=== PATIENT | male | born 1950 | race Caucasian/White ===

== ENCOUNTER 2018-07-20 23:41 | Emergency (ER) | payer MEDICARE, MEDICAID, OTHER ==
[~2018-07-20] VITALS: Ht 180.3 cm; Wt 74.8 kg
[2018-07-20 23:48] VITALS: BP 117/85
== END 2018-07-21 00:52 | disposition home or self-care (01) ==
LOC: ER 23:41
DX: M70.22 Olecranon bursitis, left elbow (principal); F12.90 Cannabis use, unspecified, uncomplicated; I10 Essential (primary) hypertension; Z56.0 Unemployment, unspecified; Z88.8 Allergy status to other drugs, medicaments and biological substances; Y93.9 Activity, unspecified
CPT/HCPCS: 20605; 73080; 99284

== ENCOUNTER 2018-08-03 17:20 | Inpatient (IN) | payer MEDICARE, MEDICAID, OTHER ==
[~2018-08-03] VITALS: Ht 185.4 cm; Wt 96.0 kg
[2018-08-03 18:06] LABS: BASOPHILS # (AUTO) 0.1 X10'3 (0-0.2); BASOPHILS % (AUTO) 1.1 % (0-1); EOSINOPHILS # (AUTO) 0.1 X10'3 (0-0.9); EOSINOPHILS % (AUTO) 1.7 % (0-6); HEMOGLOBIN 12.8 g/dl (14.0-17.9); LYMPHOCYTES # (AUTO) 1.6 X10'3 (1.1-4.8); LYMPHOCYTES % (AUTO) 30.8 % (21-51); MEAN CORPUSCULAR HEMOGLOBIN 31.5 PG (27.0-31.0); MEAN CORPUSCULAR HGB CONC 34.5 % (33.0-36.5); MEAN CORPUSCULAR VOLUME 91.3 FL (78-98); MEAN PLATELET VOLUME 7.5 FL (7.4-10.4); MONOCYTES # (AUTO) 0.5 X10'3 (0-0.9); MONOCYTES % (AUTO) 10.7 % (2-12); NEUTROPHILS # (AUTO) 2.8 X10'3 (1.8-7.7); NEUTROPHILS % (AUTO) 55.7 % (42-75); PLATELET COUNT 233 X10'3 (140-440); RED BLOOD COUNT 4.05 X10'6 (4.70-6.10); RED CELL DISTRIBUTION WIDTH 14.4 % (11.5-14.5); WHITE BLOOD COUNT 5.1 X10'3 (4.5-11.0)
[2018-08-03 18:16] LABS: PARTIAL THROMBOPLASTIN TIME 27 SECONDS (22-32); PROTHROMBIN TIME 10.5 SECONDS (9.0-12.0)
[2018-08-03 18:20] LABS: ALANINE AMINOTRANSFERASE 62 U/L (12-78); ALBUMIN 3.7 G/DL (3.4-5.0); ALBUMIN/GLOBULIN RATIO 0.9 (1.1-1.5); ALKALINE PHOSPHATASE 122 IU/L (46-116); ANION GAP 18 (8-16); ASPARTATE AMINO TRANSFERASE 61 U/L (10-37); BILIRUBIN,TOTAL 0.2 MG/DL (0.1-1.0); BLOOD UREA NITROGEN 29 MG/DL (7-18); BUN/CREATININE RATIO 9.4 (5.4-32.0); CHLORIDE 105 MMOL/L (99-107); GLUCOSE 120 MG/DL (70-104); SODIUM 141 MMOL/L (135-145); TOTAL CARBON DIOXIDE 17.9 MMOL/L (24-32); TOTAL PROTEIN 7.7 G/DL (6.4-8.2); eGFR 20 ML/MIN
[2018-08-03] MEDS ORDERED: morphine 4 MG/ML inj SYRINge IV STA (18:29)
[2018-08-03] MEDS ORDERED: normal saline 1000ML IV soln IVB ONE ×2 (19:25→20:25)
[2018-08-03] MEDS ORDERED: ondansetron/PF 4mg/2ml inj IV ONE (19:30)
[2018-08-03] MEDS ORDERED: morphine 4 MG/ML inj SYRINge IV PRN (19:30)
[2018-08-03] MEDS ORDERED: folic acid inj. 2 MG, thiamine inj. 100 MG, MVI, adult No.4 with vit. K 10 ML in dextro... IV SCH ×4 (20:00)
[2018-08-03] MEDS ORDERED: AMLO5TAB10 PO (20:04)
[2018-08-03] MEDS ORDERED: DULO60CA45 PO (20:04)
[2018-08-03] MEDS ORDERED: METO-395 PO (20:04)
[2018-08-03] MEDS ORDERED: OMEP20CA10 PO (20:04)
[2018-08-03] MEDS ORDERED: MOME13HF INH (20:04)
[2018-08-03] MEDS ORDERED: TOPI50TA24 PO (20:04)
[2018-08-03] MEDS ORDERED: FLO0.4C PO (20:04)
[2018-08-03] MEDS ORDERED: morphine 4 MG/ML inj SYRINge IV ONE (20:30)
[2018-08-03 20:44] LABS: COLOR,URINE YELLOW (Yellow); GLUCOSE, URINE NEGATIVE (Neg); KETONES,URINE NEGATIVE (Neg); LEUKOCYTE ESTERASE ,URINE NEGATIVE (Neg); NITRITES, URINE NEGATIVE (Neg); OCCULT BLOOD,URINE NEGATIVE (Neg); PH,URINE 5.5 (4.8-8.0); PROTEIN,URINE 100 mg/dl (Neg); UROBILINOGEN,URINE 0.2 E.U/dL (0.2-1.0)
[2018-08-03 20:58] LABS: CLARITY,URINE SLIGHTLY CLOUDY (Clear); UA COLLECTION TYPE CLN CATCH MIDSTREAM
[2018-08-03 21:01] LABS: AMORPHOUS URATES 2+
[2018-08-03 21:02] LABS: BACTERIA,URINE NONE SEEN /HPF (Neg); CAL OXALATE CRYSTALS 1+ /HPF (NEGATIVE); MUCUS STRANDS FEW /LPF (Neg); RBC,URINE NONE SEEN /HPF (0-2); SQUAMOUS EPITHELIAL CELL,UR FEW /LPF (FEW); WBC,URINE 0-4 /HPF (0-4)
[2018-08-03 21:03] LABS: COARSE GRANULAR CAST 0-3 /LPF (NEGATIVE); TRANSITIONAL EPI CELLS,URINE FEW /HPF
[2018-08-03 21:06] LABS: ETHANOL 0.212 GM/DL (0.0-0.010)
[2018-08-03 21:21] LABS: URINE AMPHETAMINE SCREEN NEGATIVE (Neg); URINE BARBITUATE SCREEN NEGATIVE (Neg); URINE BENZODIAZEPINES SCREEN NEGATIVE (Neg); URINE CANNABINOID SCREEN NEGATIVE (Neg); URINE COCAINE SCREEN NEGATIVE (Neg); URINE METHADONE SCREEN NEGATIVE (Neg); URINE OPIATE SCREEN POSITIVE (Neg); URINE PHENCYCLIDINE SCREEN NEGATIVE (Neg)
[2018-08-03] MEDS ORDERED: haloperidol 5mg tablet PO PRN (21:55)
[2018-08-03] MEDS ORDERED: mag hydrox/Alum hydrox/simeth 30ml oral suspension PO PRN (21:55)
[2018-08-03] MEDS ORDERED: docusate sod 100mg capsule PO PRN (21:55)
[2018-08-03] MEDS ORDERED: ondansetron/PF 4mg/2ml inj IV PRN (21:55)
[2018-08-03] MEDS ORDERED: morphine 2 MG/ML inj. syringe IV PRN (21:55)
[2018-08-03] MEDS ORDERED: acetaminophen 325mg tablet PO PRN ×2 (21:55)
[2018-08-03] MEDS ORDERED: magnesium hydroxide 30ml (MOM) UD suspension PO PRN (21:55)
[2018-08-03] MEDS ORDERED: thiamine inj. 100 MG in normal saline 100ml IV soln 100 ML IV ONE (21:55)
[2018-08-03] MEDS ORDERED: haloperidol lactate 5mg/ml inj IM PRN (21:55)
[2018-08-03] MEDS: normal saline 1000ml 1,000 ML IV SCH (22:06)
[2018-08-03 23:00] VITALS: BP 104/62
[2018-08-03] MEDS ORDERED: HYDROmorphone inj. 0.5 MG/0.5 ML DISP.SYRIN IV ONE (23:50)
[2018-08-03] MEDS ORDERED: normal saline 1000ml 1,000 ML IV ONE (23:50)
[2018-08-03] MEDS ORDERED: HYDROmorphone 1 mg/ml syringe IV ONE (23:55)
[2018-08-04] VITALS (7 sets, daily range): BP systolic 108–166; BP diastolic 57–82
[2018-08-04] MEDS: topiramate 25mg tablet PO SCH ×3 (00:16→20:17)
[2018-08-04] MEDS: HYDROmorphone 1 mg/ml syringe IV PRN ×4 (05:35→20:18)
[2018-08-04] MEDS ORDERED: albuterol 2.5 MG/3 ML nebule ONE (06:42)
[2018-08-04 07:10] LABS: BASOPHILS % (AUTO) 0.4 % (0-1); EOSINOPHILS # (AUTO) 0.1 X10'3 (0-0.9); EOSINOPHILS % (AUTO) 2.2 % (0-6); HEMATOCRIT 33.2 % (42.0-52.0); HEMOGLOBIN 11.5 g/dl (14.0-17.9); LYMPHOCYTES # (AUTO) 1.9 X10'3 (1.1-4.8); LYMPHOCYTES % (AUTO) 32.9 % (21-51); MEAN CORPUSCULAR HEMOGLOBIN 32.1 PG (27.0-31.0); MEAN CORPUSCULAR HGB CONC 34.7 % (33.0-36.5); MEAN CORPUSCULAR VOLUME 92.4 FL (78-98); MEAN PLATELET VOLUME 7.5 FL (7.4-10.4); MONOCYTES # (AUTO) 0.7 X10'3 (0-0.9); MONOCYTES % (AUTO) 11.6 % (2-12); NEUTROPHILS # (AUTO) 3.1 X10'3 (1.8-7.7); NEUTROPHILS % (AUTO) 52.9 % (42-75); PLATELET COUNT 180 X10'3 (140-440); RED BLOOD COUNT 3.59 X10'6 (4.70-6.10); RED CELL DISTRIBUTION WIDTH 14.3 % (11.5-14.5); WHITE BLOOD COUNT 5.8 X10'3 (4.5-11.0)
[2018-08-04] MEDS: budesonide 0.5mg/2ml UD nebule IH SCH ×2 (07:16→20:04)
[2018-08-04] MEDS: albuterol 2.5 MG/3 ML nebule NEB SCH ×3 (07:16→20:05)
[2018-08-04 07:29] LABS: ALBUMIN 3.1 G/DL (3.4-5.0); ANION GAP 12 (8-16); BLOOD UREA NITROGEN 21 MG/DL (7-18); BUN/CREATININE RATIO 10.2 (5.4-32.0); CHLORIDE 111 MMOL/L (99-107); CREATININE 2.06 MG/DL (0.60-1.10); GLUCOSE 103 MG/DL (70-104); MAGNESIUM 1.7 MG/DL (1.5-2.4); PHOSPHORUS 3.2 MG/DL (2.3-4.5); POTASSIUM 3.6 MMOL/L (3.5-5.1); SODIUM 143 MMOL/L (135-145); TOTAL CARBON DIOXIDE 19.7 MMOL/L (24-32); eGFR 32 ML/MIN
[2018-08-04] MEDS: folic acid 1mg tablet PO SCH ×2 (07:45→20:17)
[2018-08-04] MEDS: multivitamins, therapeutics tablet PO SCH (07:45)
[2018-08-04] MEDS: duloxetine 30mg CAPSULE.DR PO SCH (07:45)
[2018-08-04] MEDS: pantoprazole 40mg Tablet.DR PO SCH (07:45)
[2018-08-04] MEDS: tamsulosin 0.4mg capsule PO SCH (07:46)
[2018-08-04] MEDS: LORazepam 1 MG tablet PO PRN (07:46)
[2018-08-04] MEDS: thiamine 100mg tablet PO SCH (07:46)
[2018-08-04] MEDS: normal saline 1000ml 1,000 ML IV SCH ×2 (07:51→12:08)
[2018-08-04] MEDS ORDERED: FORMOTEROL INH SCH (08:00)
[2018-08-04] MEDS ORDERED: MOMETASONE INH SCH (08:00)
[2018-08-04] MEDS: HYDROcodone/acetaminophen 5mg/325mg tablet PO PRN (10:00)
[2018-08-04] MEDS: LIDOcaine 5% patch TP SCH (10:00)
[2018-08-04] MEDS: heparin, porcine 5000 units/ml vial SQ SCH (20:16)
[2018-08-04] MEDS: Potassium Cl inj 20 MEQ in normal saline 1000ml 1,000 ML IV SCH (22:23)
[2018-08-05] VITALS (7 sets, daily range): BP systolic 145–190; BP diastolic 72–99
[2018-08-05] MEDS: Melatonin 3mg tablet PO PRN ×2 (00:22→21:56)
[2018-08-05] MEDS: HYDROmorphone 1 mg/ml syringe IV PRN ×6 (00:22→23:24)
[2018-08-05 06:17] LABS: ALBUMIN 3.3 G/DL (3.4-5.0); ANION GAP 15 (8-16); BLOOD UREA NITROGEN 15 MG/DL (7-18); CALCIUM 8.7 MG/DL (8.5-10.1); CHLORIDE 108 MMOL/L (99-107); CREATININE 1.36 MG/DL (0.60-1.10); GLUCOSE 129 MG/DL (70-104); MAGNESIUM 1.6 MG/DL (1.5-2.4); PHOSPHORUS 2.1 MG/DL (2.3-4.5); POTASSIUM 3.6 MMOL/L (3.5-5.1); SODIUM 141 MMOL/L (135-145); eGFR 52 ML/MIN
[2018-08-05] MEDS: pantoprazole 40mg Tablet.DR PO SCH (07:15)
[2018-08-05] MEDS: topiramate 25mg tablet PO SCH ×2 (07:15→19:12)
[2018-08-05] MEDS: thiamine 100mg tablet PO SCH (07:15)
[2018-08-05] MEDS: folic acid 1mg tablet PO SCH ×2 (07:15→19:12)
[2018-08-05] MEDS: LIDOcaine 5% patch TP SCH (07:15)
[2018-08-05] MEDS: heparin, porcine 5000 units/ml vial SQ SCH ×2 (07:15→19:12)
[2018-08-05] MEDS: metoprolol succinate 25mg (24-HOUR) SR. Tablet PO SCH (07:16)
[2018-08-05] MEDS: tamsulosin 0.4mg capsule PO SCH (07:16)
[2018-08-05] MEDS: duloxetine 30mg CAPSULE.DR PO SCH (07:16)
[2018-08-05] MEDS: multivitamins, therapeutics tablet PO SCH (07:16)
[2018-08-05] MEDS: Potassium Cl inj 20 MEQ in normal saline 1000ml 1,000 ML IV SCH ×2 (09:16→21:56)
[2018-08-05] MEDS: budesonide 0.5mg/2ml UD nebule IH SCH ×2 (09:27→19:42)
[2018-08-05] MEDS: albuterol 2.5 MG/3 ML nebule NEB SCH ×4 (09:27→19:42)
[2018-08-05] MEDS: LORazepam 1 MG tablet PO PRN (22:02)
[2018-08-06] VITALS (8 sets, daily range): BP systolic 150–187; BP diastolic 79–111
[2018-08-06] MEDS: LORazepam 2 mg/ml vial IV PRN ×2 (02:41→03:54)
[2018-08-06 03:08] LABS: ALBUMIN 3.3 G/DL (3.4-5.0); ANION GAP 14 (8-16); BLOOD UREA NITROGEN 12 MG/DL (7-18); BUN/CREATININE RATIO 8.5 (5.4-32.0); CALCIUM 8.8 MG/DL (8.5-10.1); CHLORIDE 107 MMOL/L (99-107); CREATININE 1.41 MG/DL (0.60-1.10); GLUCOSE 99 MG/DL (70-104); MAGNESIUM 1.7 MG/DL (1.5-2.4); PHOSPHORUS 1.8 MG/DL (2.3-4.5); POTASSIUM 3.9 MMOL/L (3.5-5.1); SODIUM 141 MMOL/L (135-145); TOTAL CARBON DIOXIDE 19.7 MMOL/L (24-32); eGFR 50 ML/MIN
[2018-08-06] MEDS ORDERED: haloperidol lactate 5mg/ml inj IM ONE ×3 (03:40→04:15)
[2018-08-06] MEDS ORDERED: diphenhydrAMINE 50 mg/ml inj IM ONE ×2 (04:05→04:15)
[2018-08-06] MEDS: Potassium Cl inj 20 MEQ in normal saline 1000ml 1,000 ML IV SCH ×3 (04:09→23:30)
[2018-08-06] MEDS ORDERED: LORazepam 2 mg/ml vial IM ONE (04:15)
[2018-08-06] MEDS: budesonide 0.5mg/2ml UD nebule IH SCH ×2 (07:27→19:13)
[2018-08-06] MEDS: albuterol 2.5 MG/3 ML nebule NEB SCH ×5 (07:27→19:13)
[2018-08-06] MEDS: LIDOcaine 5% patch TP SCH ×2 (07:49→20:00)
[2018-08-06] MEDS: heparin, porcine 5000 units/ml vial SQ SCH ×2 (07:49→19:21)
[2018-08-06] MEDS: topiramate 25mg tablet PO SCH ×2 (08:00→19:21)
[2018-08-06] MEDS: pantoprazole 40mg Tablet.DR PO SCH (08:00)
[2018-08-06] MEDS: tamsulosin 0.4mg capsule PO SCH (08:00)
[2018-08-06] MEDS: metoprolol succinate 25mg (24-HOUR) SR. Tablet PO SCH (08:00)
[2018-08-06] MEDS: folic acid 1mg tablet PO SCH ×2 (08:00→19:21)
[2018-08-06] MEDS: duloxetine 30mg CAPSULE.DR PO SCH (08:00)
[2018-08-06] MEDS: thiamine 100mg tablet PO SCH (08:00)
[2018-08-06] MEDS: multivitamins, therapeutics tablet PO SCH (08:00)
[2018-08-06] MEDS: HYDROmorphone 1 mg/ml syringe IV PRN ×2 (19:23→23:30)
[2018-08-07 03:00] VITALS: BP 184/100
[2018-08-07] MEDS: hydrALAZINE 20mg/ml inj. IV PRN (03:14)
[2018-08-07 06:00] VITALS: BP 174/84
[2018-08-07] MEDS: HYDROmorphone 1 mg/ml syringe IV PRN ×2 (06:14→10:42)
[2018-08-07] MEDS: albuterol 2.5 MG/3 ML nebule NEB SCH ×4 (07:57→20:04)
[2018-08-07] MEDS: budesonide 0.5mg/2ml UD nebule IH SCH ×2 (07:57→20:04)
[2018-08-07 08:31] LABS: ALBUMIN 3.1 G/DL (3.4-5.0); ANION GAP 13 (8-16); BLOOD UREA NITROGEN 14 MG/DL (7-18); BUN/CREATININE RATIO 10.9 (5.4-32.0); CALCIUM 9.3 MG/DL (8.5-10.1); CHLORIDE 111 MMOL/L (99-107); CREATININE 1.29 MG/DL (0.60-1.10); GLUCOSE 96 MG/DL (70-104); MAGNESIUM 1.8 MG/DL (1.5-2.4); PHOSPHORUS 2.3 MG/DL (2.3-4.5); SODIUM 144 MMOL/L (135-145); TOTAL CARBON DIOXIDE 20.2 MMOL/L (24-32); eGFR 56 ML/MIN
[2018-08-07] MEDS: tamsulosin 0.4mg capsule PO SCH (09:19)
[2018-08-07] MEDS: duloxetine 30mg CAPSULE.DR PO SCH (09:19)
[2018-08-07] MEDS: pantoprazole 40mg Tablet.DR PO SCH (09:20)
[2018-08-07] MEDS: multivitamins, therapeutics tablet PO SCH (09:20)
[2018-08-07] MEDS: folic acid 1mg tablet PO SCH ×2 (09:20→20:24)
[2018-08-07] MEDS: thiamine 100mg tablet PO SCH (09:21)
[2018-08-07] MEDS: topiramate 25mg tablet PO SCH ×2 (09:25→20:24)
[2018-08-07] MEDS: metoprolol succinate 25mg (24-HOUR) SR. Tablet PO SCH (09:28)
[2018-08-07] MEDS: heparin, porcine 5000 units/ml vial SQ SCH ×2 (09:29→20:24)
[2018-08-07] MEDS: LIDOcaine 5% patch TP SCH (09:30)
[2018-08-07 11:00] VITALS: BP 157/105
[2018-08-07] MEDS: HYDROcodone/acetaminophen 5mg/325mg tablet PO PRN ×3 (13:07→21:39)
[2018-08-07] MEDS: Potassium Cl inj 20 MEQ in normal saline 1000ml 1,000 ML IV SCH ×2 (13:08→20:33)
[2018-08-07 15:00] VITALS: BP 165/82
[2018-08-07 19:00] VITALS: BP 147/85
[2018-08-07 23:00] VITALS: BP 164/89
[2018-08-08] VITALS (7 sets, daily range): BP systolic 142–227; BP diastolic 72–127
[2018-08-08] MEDS: HYDROcodone/acetaminophen 5mg/325mg tablet PO PRN ×5 (02:09→20:02)
[2018-08-08 06:05] LABS: ALBUMIN 3.2 G/DL (3.4-5.0); ANION GAP 13 (8-16); BLOOD UREA NITROGEN 18 MG/DL (7-18); BUN/CREATININE RATIO 12.1 (5.4-32.0); CALCIUM 9.3 MG/DL (8.5-10.1); CHLORIDE 109 MMOL/L (99-107); CREATININE 1.49 MG/DL (0.60-1.10); GLUCOSE 98 MG/DL (70-104); MAGNESIUM 1.9 MG/DL (1.5-2.4); PHOSPHORUS 4.3 MG/DL (2.3-4.5); POTASSIUM 4.2 MMOL/L (3.5-5.1); SODIUM 144 MMOL/L (135-145); TOTAL CARBON DIOXIDE 22.3 MMOL/L (24-32); eGFR 47 ML/MIN
[2018-08-08] MEDS: hydrALAZINE 20mg/ml inj. IV PRN ×2 (06:22→22:35)
[2018-08-08] MEDS: budesonide 0.5mg/2ml UD nebule IH SCH ×2 (06:50→19:51)
[2018-08-08] MEDS: albuterol 2.5 MG/3 ML nebule NEB SCH ×4 (06:50→19:51)
[2018-08-08] MEDS: duloxetine 30mg CAPSULE.DR PO SCH (07:44)
[2018-08-08] MEDS: metoprolol succinate 25mg (24-HOUR) SR. Tablet PO SCH (07:44)
[2018-08-08] MEDS: folic acid 1mg tablet PO SCH ×2 (07:44→20:04)
[2018-08-08] MEDS: multivitamins, therapeutics tablet PO SCH (07:44)
[2018-08-08] MEDS: tamsulosin 0.4mg capsule PO SCH (07:44)
[2018-08-08] MEDS: thiamine 100mg tablet PO SCH (07:44)
[2018-08-08] MEDS: heparin, porcine 5000 units/ml vial SQ SCH ×2 (07:45→20:05)
[2018-08-08] MEDS: topiramate 25mg tablet PO SCH ×2 (07:45→20:03)
[2018-08-08] MEDS: Potassium Cl inj 20 MEQ in normal saline 1000ml 1,000 ML IV SCH (07:45)
[2018-08-08] MEDS: pantoprazole 40mg Tablet.DR PO SCH (07:45)
[2018-08-08] MEDS ORDERED: LIDOcaine 5% patch TP ONE (11:25)
[2018-08-08] MEDS: HYDROmorphone 1 mg/ml syringe IV PRN (22:48)
[2018-08-09] MEDS: HYDROcodone/acetaminophen 5mg/325mg tablet PO PRN ×2 (02:04→11:32)
[2018-08-09 03:00] VITALS: BP 177/91
[2018-08-09] MEDS: HYDROmorphone 1 mg/ml syringe IV PRN ×3 (03:19→12:37)
[2018-08-09 06:00] VITALS: BP 169/94
[2018-08-09] MEDS: budesonide 0.5mg/2ml UD nebule IH SCH (07:07)
[2018-08-09] MEDS: albuterol 2.5 MG/3 ML nebule NEB SCH ×2 (07:07→11:18)
[2018-08-09] MEDS: LIDOcaine 5% patch TP SCH (08:00)
[2018-08-09] MEDS: topiramate 25mg tablet PO SCH (08:00)
[2018-08-09] MEDS: pantoprazole 40mg Tablet.DR PO SCH (08:58)
[2018-08-09] MEDS: thiamine 100mg tablet PO SCH (08:59)
[2018-08-09] MEDS: multivitamins, therapeutics tablet PO SCH (08:59)
[2018-08-09] MEDS: tamsulosin 0.4mg capsule PO SCH (08:59)
[2018-08-09] MEDS: duloxetine 30mg CAPSULE.DR PO SCH (09:00)
[2018-08-09] MEDS: folic acid 1mg tablet PO SCH (09:01)
[2018-08-09] MEDS: metoprolol succinate 25mg (24-HOUR) SR. Tablet PO SCH (09:02)
[2018-08-09] MEDS: heparin, porcine 5000 units/ml vial SQ SCH (09:05)
[2018-08-09 10:14] LABS: ALBUMIN 3.5 G/DL (3.4-5.0); ANION GAP 13 (8-16); BLOOD UREA NITROGEN 20 MG/DL (7-18); BUN/CREATININE RATIO 12.5 (5.4-32.0); CHLORIDE 104 MMOL/L (99-107); GLUCOSE 126 MG/DL (70-104); MAGNESIUM 1.7 MG/DL (1.5-2.4); SODIUM 139 MMOL/L (135-145); TOTAL CARBON DIOXIDE 22.2 MMOL/L (24-32); eGFR 43 ML/MIN
[2018-08-09 10:18] LABS: BASOPHILS % (AUTO) 0.6 % (0-1); EOSINOPHILS % (AUTO) 2.1 % (0-6); HEMATOCRIT 34.8 % (42.0-52.0); HEMOGLOBIN 11.9 g/dl (14.0-17.9); LYMPHOCYTES % (AUTO) 14.9 % (21-51); MEAN CORPUSCULAR HEMOGLOBIN 32.1 PG (27.0-31.0); MEAN CORPUSCULAR HGB CONC 34.3 % (33.0-36.5); MEAN CORPUSCULAR VOLUME 93.5 FL (78-98); MEAN PLATELET VOLUME 7.9 FL (7.4-10.4); MONOCYTES % (AUTO) 11.4 % (2-12); NEUTROPHILS # (AUTO) 3.9 X10'3 (1.8-7.7); NEUTROPHILS % (AUTO) 71 % (42-75); PLATELET COUNT 196 X10'3 (140-440); RED BLOOD COUNT 3.72 X10'6 (4.70-6.10); RED CELL DISTRIBUTION WIDTH 14.7 % (11.5-14.5); WHITE BLOOD COUNT 5.4 X10'3 (4.5-11.0)
[2018-08-09 10:19] LABS: EOSINOPHILS # (AUTO) 0.1 X10'3 (0-0.9); LYMPHOCYTES # (AUTO) 0.8 X10'3 (1.1-4.8); MONOCYTES # (AUTO) 0.6 X10'3 (0-0.9)
[2018-08-09 11:00] VITALS: BP 170/95
[2018-08-09] MEDS ORDERED: MELA3TAB PO (13:35)
[2018-08-09] MEDS ORDERED: FOLI1TAB16 PO (13:35)
[2018-08-09] MEDS ORDERED: THI100T PO (13:35)
[2018-08-09] MEDS ORDERED: MULT-1179 PO (13:35)
[2018-08-09] MEDS ORDERED: amLODIPine 5mg tablet PO ONE (13:45)
[2018-08-09 13:58] VITALS: BP 135/77
[2018-08-09] MEDS ORDERED: ASPI-611 PO (14:05)
[2018-08-09] MEDS ORDERED: ATOR20TA66 PO (14:05)
== END 2018-08-09 15:23 | disposition home health service (06) | DRG 683 ==
LOC: ER 17:20 → ED HOLD 21:51 → PCU 3S 23:51 → CMPBEDREQ 08-06 19:23 → PCU 3S 08-08 10:10
PROVIDERS: ADMIT Internal Medicine; ATTEND Family Medicine
DX: N17.0 Acute kidney failure with tubular necrosis (principal); G45.8 Other transient cerebral ischemic attacks and related syndromes; M48.54XA Collapsed vertebra, not elsewhere classified, thoracic region, initial encounter for fracture; N18.3 Chronic kidney disease, stage 3 (moderate); E86.0 Dehydration; D64.9 Anemia, unspecified; F02.80 Dementia in other diseases classified elsewhere, unspecified severity, without behavioral disturbance, psychotic disturbance, mood disturbance, and anxiety; F10.10 Alcohol abuse, uncomplicated; G20 Parkinson's disease; G30.0 Alzheimer's disease with early onset; G40.909 Epilepsy, unspecified, not intractable, without status epilepticus; G89.29 Other chronic pain; M54.9 Dorsalgia, unspecified; F12.90 Cannabis use, unspecified, uncomplicated; M46.90 Unspecified inflammatory spondylopathy, site unspecified; Y90.1 Blood alcohol level of 20-39 mg/100 ml; F32.9 Major depressive disorder, single episode, unspecified; I95.9 Hypotension, unspecified; I12.9 Hypertensive chronic kidney disease with stage 1 through stage 4 chronic kidney disease, or unspecified chronic kidney disease; K21.9 Gastro-esophageal reflux disease without esophagitis; M85.80 Other specified disorders of bone density and structure, unspecified site; M50.322 Other cervical disc degeneration at C5-C6 level; N40.0 Benign prostatic hyperplasia without lower urinary tract symptoms; Z79.82 Long term (current) use of aspirin; Z79.899 Other long term (current) drug therapy; Z23 Encounter for immunization; Z88.8 Allergy status to other drugs, medicaments and biological substances; Z87.891 Personal history of nicotine dependence; Z71.41 Alcohol abuse counseling and surveillance of alcoholic
CPT/HCPCS: 36415; 70450; 70551; 71045; 72125; 72128; 80048; 80053; 80305; 80320; 81001; 83735; 84100; 84484; 85025; 85610; 85730; 87070; 93005; 93306; 93880; 94640; 94760; 96361; 96374; 96375; 96376; 97110; 97116; 97162; 97530; 99285; A4353; A6258; J0360; J1170; J1200; J1630; J1644; J2060; J2270; J2405; J3411; J3480; J3490; J7030; J7060; J7626

== ENCOUNTER 2019-08-26 17:30 | Emergency (ER) | payer MEDICARE, MEDICAID, OTHER ==
[~2019-08-26] VITALS: Ht 177.8 cm; Wt 95.5 kg
[~2019-08-26 17:30] MED LIST: AMLO5TAB10 PO; ATOR20TA66 PO; DULO60CA45 PO; FLO0.4C PO; FOLI1TAB16 PO; MELA3TAB64 PO; METO-395 PO; MOME13HF INH; MULT-1179 PO; THI100T PO; TOPI50TA24 PO
[2019-08-26] MEDS ORDERED: HYDROcodone/acetaminophen 10/325mg tab PO ONE (18:05)
[2019-08-26] MEDS ORDERED: LORazepam 1 MG tablet PO ONE (18:55)
--- NOTE | 2019-08-26 18:55 | NUR ---
DISCUSSED PT'S RESPONSE TO PAIN MEDICATION; NEW ORDER FOR ATIVAN 1MG RECEIVED.
[2019-08-26] MEDS ORDERED: HYDR-4383 PO (19:13)
[2019-08-26 19:23] VITALS: BP 121/61
== END 2019-08-26 19:27 | disposition home or self-care (01) ==
LOC: ER 17:30
DX: S52.512A Displaced fracture of left radial styloid process, initial encounter for closed fracture (principal); G20 Parkinson's disease; I10 Essential (primary) hypertension; F12.90 Cannabis use, unspecified, uncomplicated; Z86.69 Personal history of other diseases of the nervous system and sense organs; Z56.0 Unemployment, unspecified; Z88.8 Allergy status to other drugs, medicaments and biological substances; Z79.899 Other long term (current) drug therapy; W01.0XXA Fall on same level from slipping, tripping and stumbling without subsequent striking against object, initial encounter; Y93.89 Activity, other specified; Y92.89 Other specified places as the place of occurrence of the external cause; Y99.8 Other external cause status
CPT/HCPCS: 29125; 73090; 73110; 99284

== ENCOUNTER 2019-08-30 20:40 | Emergency (ER) | payer MEDICARE, MEDICAID, OTHER ==
[~2019-08-30] VITALS: Ht 177.8 cm; Wt 95.5 kg
[~2019-08-30 20:40] MED LIST changes: +HYDR-4383 PO
[2019-08-30 21:06] VITALS: BP 118/79
[2019-08-30] MEDS ORDERED: HYDR-3965 PO (23:47)
[2019-08-30] MEDS ORDERED: HYDROcodone/acetaminophen 5mg/325mg tablet PO ONE (23:50)
== END 2019-08-31 00:10 | disposition home or self-care (01) ==
LOC: ER 20:41
DX: M77.9 Enthesopathy, unspecified (principal); M25.532 Pain in left wrist; I10 Essential (primary) hypertension; F12.90 Cannabis use, unspecified, uncomplicated; F17.210 Nicotine dependence, cigarettes, uncomplicated; Z56.0 Unemployment, unspecified; Z79.899 Other long term (current) drug therapy; Z88.8 Allergy status to other drugs, medicaments and biological substances
CPT/HCPCS: 29125; 99283

== ENCOUNTER 2020-05-04 11:11 | Inpatient (IN) | payer MEDICARE, MEDICAID ==
[2020-05-04] VITALS (8 sets, daily range): BP systolic 99–186; BP diastolic 55–118
[~2020-05-04] VITALS: Ht 177.8 cm; Wt 103.1 kg
[2020-05-04] MEDS: K, MAG and/or Phos replacement - Verify level? MC SCH (08:00)
[~2020-05-04 11:11] MED LIST changes: +MELA3TAB39 PO; -MELA3TAB64 PO; -MULT-1179 PO; +MULT-25 PO; +folic acid 1mg tablet PO SCH; +folic acid inj. 2 MG, thiamine inj. 100 MG, MVI, adult No.4 with vit. K 10 ML in dextro... IV SCH; +thiamine 100mg tablet PO SCH
[2020-05-04] MEDS ORDERED: topiramate 100mg tablet PO ONE (11:30)
[2020-05-04] MEDS ORDERED: normal saline 1000ML IV soln IV ONE (11:35)
[2020-05-04 11:50] LABS: BASOPHILS % (AUTO) 1.2 % (0-1); EOSINOPHILS # (AUTO) 0.2 X10'3 (0-0.9); EOSINOPHILS % (AUTO) 3.9 % (0-6); HEMATOCRIT 38.4 % (42.0-52.0); HEMOGLOBIN 12.8 g/dl (14.0-17.9); LYMPHOCYTES % (AUTO) 23.8 % (21-51); MEAN CORPUSCULAR HGB CONC 33.3 g/dL (33.0-36.5); MEAN CORPUSCULAR VOLUME 96.2 FL (78-98); MONOCYTES # (AUTO) 0.5 X10'3 (0-0.9); MONOCYTES % (AUTO) 12.2 % (2-12); NEUTROPHILS # (AUTO) 2.4 X10'3 (1.8-7.7); NEUTROPHILS % (AUTO) 58.9 % (42-75); PLATELET COUNT 218 X10'3 (140-440); RED BLOOD COUNT 3.99 X10'6 (4.70-6.10); RED CELL DISTRIBUTION WIDTH 13.5 % (11.5-14.5); WHITE BLOOD COUNT 4.1 X10'3 (4.5-11.0)
[2020-05-04] MEDS ORDERED: LORazepam 2 mg/ml vial IV ONE ×2 (12:00→13:25)
[2020-05-04] MEDS ORDERED: LORazepam 2 mg/ml vial ONE (12:02)
[2020-05-04 12:03] LABS: PARTIAL THROMBOPLASTIN TIME 25 SECONDS (22-32)
[2020-05-04] MEDS ORDERED: levetiracetam inj 1,000 MG in normal saline 100ml IV soln 90 ML IV STA (12:03)
[2020-05-04 12:04] LABS: ALANINE AMINOTRANSFERASE 33 U/L (12-78); ALBUMIN 3.7 G/DL (3.4-5.0); ALKALINE PHOSPHATASE 96 IU/L (46-116); ANION GAP 17 (8-16); ASPARTATE AMINO TRANSFERASE 18 U/L (10-37); BILIRUBIN,TOTAL 0.2 MG/DL (0.1-1.0); BLOOD UREA NITROGEN 39 MG/DL (7-18); BUN/CREATININE RATIO 16.5 (5.4-32.0); CALCIUM 8.8 MG/DL (8.5-10.1); CHLORIDE 111 MMOL/L (99-107); CREATININE 2.36 MG/DL (0.60-1.10); GLUCOSE 100 MG/DL (70-104); POTASSIUM 4.1 MMOL/L (3.5-5.1); SODIUM 147 MMOL/L (135-145); TOTAL CARBON DIOXIDE 19.1 MMOL/L (24-32); TOTAL PROTEIN 7.5 G/DL (6.4-8.2); eGFR 28 ML/MIN
[2020-05-04] MEDS ORDERED: ipratropium/albuterol 3ml nebule NEB ONE (12:05)
[2020-05-04] MEDS ORDERED: magnesium 2GM in 50ml NS 50 ML IV ONE (12:05)
[2020-05-04] MEDS ORDERED: levetiracetam-NS 1000mg/100ml 100 ML IV STA (12:08)
[2020-05-04 12:19] LABS: MAGNESIUM 2.3 MG/DL (1.5-2.4); TROPONIN I < 0.04 NG/ML (0.0-0.05)
[2020-05-04] MEDS ORDERED: phenobarbital inj 500 MG in normal saline 250ml IV soln 246.1538 ML IV ONE (13:40)
[2020-05-04 13:41] LABS: PHOSPHORUS 3.3 MG/DL (2.3-4.5)
[2020-05-04 14:02] LABS: CLARITY,URINE SLIGHTLY CLOUDY (Clear); COLOR,URINE STRAW (Yellow); GLUCOSE, URINE NEGATIVE (Neg); KETONES,URINE NEGATIVE (Neg); LEUKOCYTE ESTERASE ,URINE NEGATIVE (Neg); NITRITES, URINE NEGATIVE (Neg); OCCULT BLOOD,URINE NEGATIVE (Neg); PH,URINE 5.5 (4.8-8.0); PROTEIN,URINE 30 mg/dl (Neg); UROBILINOGEN,URINE 0.2 E.U/dL (0.2-1.0)
[2020-05-04 14:08] LABS: UA COLLECTION TYPE STRAIGHT CATH
[2020-05-04 14:09] LABS: URINE AMPHETAMINE SCREEN NEGATIVE (Neg); URINE BARBITUATE SCREEN NEGATIVE (Neg); URINE BENZODIAZEPINES SCREEN POSITIVE (Neg); URINE CANNABINOID SCREEN NEGATIVE (Neg); URINE COCAINE SCREEN NEGATIVE (Neg); URINE METHADONE SCREEN NEGATIVE (Neg); URINE OPIATE SCREEN NEGATIVE (Neg); URINE PHENCYCLIDINE SCREEN NEGATIVE (Neg)
[2020-05-04 14:10] LABS: ETHANOL 0.142 GM/DL (0.0-0.010)
[2020-05-04 14:16] LABS: COARSE GRANULAR CAST 0-3 /LPF (NEGATIVE); HYALINE CASTS 0-3 /LPF (NEGATIVE)
[2020-05-04 14:17] LABS: AMORPHOUS URATES 3+; BACTERIA,URINE NONE SEEN /HPF (Neg); MUCUS STRANDS NONE SEEN /LPF (Neg); RBC,URINE NONE SEEN /HPF (0-2); SQUAMOUS EPITHELIAL CELL,UR NONE SEEN /LPF (FEW); TRANSITIONAL EPI CELLS,URINE FEW /HPF; WBC,URINE 0-4 /HPF (0-4)
[2020-05-04] MEDS ORDERED: magnesium 2GM in 50ml NS 50 ML IV PRN (16:55)
[2020-05-04] MEDS ORDERED: magnesium Cl slow-release 64mg tablet PO PRN (16:55)
[2020-05-04] MEDS ORDERED: haloperidol 5mg tablet PO PRN (16:55)
[2020-05-04] MEDS ORDERED: sodium phosphate inj. 30 MMOL in dextrose 5%-water 250 ML IV PRN (16:55)
[2020-05-04] MEDS ORDERED: potassium Cl 20 mEq SR tablet PO PRN ×2 (16:55)
[2020-05-04] MEDS ORDERED: magnesium hydroxide 30ml (MOM) UD suspension PO PRN (16:55)
[2020-05-04] MEDS ORDERED: HYDROcodone/acetaminophen 5mg/325mg tablet PO PRN (16:55)
[2020-05-04] MEDS ORDERED: ondansetron/PF 4mg/2ml inj IV PRN (16:55)
[2020-05-04] MEDS ORDERED: dextrose 50%-water 50ml dispensing syringe IV PRN (16:55)
[2020-05-04] MEDS ORDERED: sodium phosphate inj. 15 MMOL in dextrose 5%-water 250 ML IV PRN (16:55)
[2020-05-04] MEDS ORDERED: magnesium 4gm in 100ml NS 100 ML IV PRN (16:55)
[2020-05-04] MEDS ORDERED: Neutra Phos packet PO PRN (16:55)
[2020-05-04] MEDS ORDERED: thiamine 100mg/ml 2ml inj. IV ONE (16:55)
[2020-05-04] MEDS ORDERED: acetaminophen 325mg tablet PO PRN ×2 (16:55)
[2020-05-04] MEDS ORDERED: Melatonin 3mg tablet PO PRN (17:05)
[2020-05-04] MEDS ORDERED: folic acid inj. 2 MG, thiamine inj. 100 MG, MVI, adult No.4 with vit. K 10 ML in dextro... IV ONE ×4 (17:15)
[2020-05-04] MEDS: normal saline 1000ml 1,000 ML IV SCH (17:45)
[2020-05-04] MEDS: morphine 4 MG/ML inj SYRINge IV PRN ×2 (17:46→23:39)
--- NOTE | 2020-05-04 17:58 | NUR ---
Pt arrived to unit at 1730 via gurney. Got self over to ICU bed. Pt alert and oriented but complaining of back pain. 4mg morphine administered as well as meds that were not given in ER. Pt hooked up to ICU monitor. All VSS. No noted seizure activity at this time. Phenobarb gtt finishing up. Will continue to monitor.
[2020-05-04] MEDS ORDERED: LOSA50TA64 PO (17:59)
[2020-05-04] MEDS ORDERED: METO25TA6 PO (18:01)
[2020-05-04] MEDS ORDERED: MULT-1172 PO (18:03)
[2020-05-04] MEDS ORDERED: CHOL50004 PO (18:05)
[2020-05-04] MEDS ORDERED: DOXE10CA2 PO (18:07)
--- NOTE | 2020-05-04 18:10 | NUR ---
Patient in room ICU 2043. I have received report from ALOK Escobar and had the opportunity to ask questions and assume patient care.
[2020-05-04] MEDS ORDERED: OMEP20TA5 PO (18:11)
--- NOTE | 2020-05-04 18:11 | NUR ---
Problems reprioritized. Patient report given, questions answered & plan of care reviewed with ALOK Escobar.
[2020-05-04] MEDS ORDERED: GLUC-95 PO (18:12)
[2020-05-04] MEDS: pantoprazole 40 MG vial IV SCH (18:44)
[2020-05-04] MEDS: LORazepam 1 MG tablet PO PRN (18:45)
[2020-05-04] MEDS: HYDROcodone/acetaminophen 10/325mg tab PO PRN (18:45)
--- NOTE | 2020-05-04 18:45 | NUR ---
Patient very restless. Complaining of lower back and right hip pain. Medicated earlier with morphine IV with little effect. Shift assessment completed. No redness, swelling, or bruising noted to areas of complaint. No seizure activity noted. Does have fine tremors to upper extremities. Oriented to person, time, and situation. Disoriented to place despite knowing he is here because he had a seizure. Reoriented that he was in the hospital in [place]. Later on while conversing patient asked why we were in the basement and also stated that he was having double vision when looking at objects at a distance. Patient medicated with prn [place] and po Ativan 2mg as ordered. Patient is also edentulous and speech appears slurred but patient states that is normal.
--- NOTE | 2020-05-04 19:36 | NUR ---
6: Loud incoherent garbled sound and moaning heard from patient's room. Entered room to find patient unresponsive to stimuli. Color to upper chest, neck, and face deep reddish/purple in color. Rigidity noted to upper extremities with arms bent toward core of body. Patient then proceeded to stop making the garbled sounds and proceeded to start having rhythmic jerking movements to all extremities with arms remaining bent but extending above head. November Elder DIRECTOR [employer] made aware of seizure like activity and presented to assess patient. Ativan 2mg IV ordered prn for seizures and administered. Patient's activity stopped within 30 sec of Ativan administration. Patient remained in a postictal state for a very short time and immediately asking about getting up to walk once alert. Patient unaware of having a seizure. Denies headache, visionary problems. Airway and safety maintained throughout seizure. Will continue to monitor.
[2020-05-04] MEDS ORDERED: folic acid 1mg tablet PO SCH (20:00)
[2020-05-04] MEDS: heparin, porcine 5000 units/ml vial SQ SCH (20:25)
[2020-05-04] MEDS: metoprolol succinate 25mg (24-HOUR) SR. Tablet PO SCH (20:25)
[2020-05-04] MEDS: docusate sod 100mg capsule PO SCH (20:25)
--- NOTE | 2020-05-04 22:00 | NUR ---
No further seizure activity noted but patient remains restless and disoriented at times. Will continue to monitor.
--- NOTE | 2020-05-04 23:45 | NUR ---
Patient agitated and loudly moaning. Complaining of severe back pain and attempting to turn over. Offered to assist but patient disoriented and refusing assistance. Medicated with PRN Morphine and once calmer patient repositioned to side and left to rest.
[2020-05-05] VITALS (26 sets, daily range): BP systolic 102–170; BP diastolic 59–103
--- NOTE | 2020-05-05 01:00 | NUR ---
Patient has been resting comfortably since Morphine administration. VSS. No seizure activity.
[2020-05-05] MEDS: HYDROcodone/acetaminophen 10/325mg tab PO PRN ×2 (01:40→10:50)
--- NOTE | 2020-05-05 02:30 | NUR ---
Patient yelling out in pain. Was medicated with prn [place] about an hour ago. Not due for IV Morphine for another 2. Attempted repositioning but no effect noted. Contacted Franchesca Friedman RN and received one time dose of Morphine 4mg IV now. Given as ordered.
[2020-05-05] MEDS ORDERED: morphine 4 MG/ML inj SYRINge IV ONE (02:40)
[2020-05-05] MEDS: LORazepam 2 mg/ml vial IV PRN ×5 (03:03→18:01)
[2020-05-05 05:17] LABS: BASOPHILS % (AUTO) 0.9 % (0-1); EOSINOPHILS # (AUTO) 0.2 X10'3 (0-0.9); EOSINOPHILS % (AUTO) 3.1 % (0-6); HEMATOCRIT 32.9 % (42.0-52.0); LYMPHOCYTES # (AUTO) 1.7 X10'3 (1.1-4.8); LYMPHOCYTES % (AUTO) 31.9 % (21-51); MEAN CORPUSCULAR HEMOGLOBIN 32.3 PG (27.0-31.0); MEAN CORPUSCULAR HGB CONC 33.5 g/dL (33.0-36.5); MEAN CORPUSCULAR VOLUME 96.4 FL (78-98); MEAN PLATELET VOLUME 8.3 FL (7.4-10.4); MONOCYTES # (AUTO) 0.5 X10'3 (0-0.9); MONOCYTES % (AUTO) 10.1 % (2-12); NEUTROPHILS # (AUTO) 2.8 X10'3 (1.8-7.7); PLATELET COUNT 175 X10'3 (140-440); RED BLOOD COUNT 3.41 X10'6 (4.70-6.10); RED CELL DISTRIBUTION WIDTH 13.7 % (11.5-14.5); WHITE BLOOD COUNT 5.2 X10'3 (4.5-11.0)
[2020-05-05 05:27] LABS: ALANINE AMINOTRANSFERASE 29 U/L (12-78); ALBUMIN 3.2 G/DL (3.4-5.0); ALKALINE PHOSPHATASE 81 IU/L (46-116); ANION GAP 10 (8-16); ASPARTATE AMINO TRANSFERASE 20 U/L (10-37); BILIRUBIN,TOTAL 0.4 MG/DL (0.1-1.0); BLOOD UREA NITROGEN 31 MG/DL (7-18); CHLORIDE 114 MMOL/L (99-107); CREATININE 1.94 MG/DL (0.60-1.10); GLUCOSE 87 MG/DL (70-104); MAGNESIUM 2.2 MG/DL (1.5-2.4); PHOSPHORUS 3.3 MG/DL (2.3-4.5); SODIUM 147 MMOL/L (135-145); TOTAL CARBON DIOXIDE 23.3 MMOL/L (24-32); TOTAL PROTEIN 6.5 G/DL (6.4-8.2); eGFR 34 ML/MIN
--- NOTE | 2020-05-05 06:34 | NUR ---
Patient in room ICU 2043. I have received report from Luz and had the opportunity to ask questions and assume patient care.
[2020-05-05] MEDS: K, MAG and/or Phos replacement - Verify level? MC SCH (06:37)
[2020-05-05] MEDS: heparin, porcine 5000 units/ml vial SQ SCH ×2 (07:12→21:26)
[2020-05-05] MEDS: docusate sod 100mg capsule PO SCH ×2 (07:12→20:00)
[2020-05-05] MEDS: pantoprazole 40 MG vial IV SCH (07:12)
[2020-05-05] MEDS: tamsulosin 0.4mg capsule PO SCH (07:12)
[2020-05-05] MEDS: metoprolol succinate 25mg (24-HOUR) SR. Tablet PO SCH ×2 (07:13→20:00)
[2020-05-05] MEDS: atorvastatin 20mg tablet PO SCH (07:13)
[2020-05-05] MEDS: normal saline 1000ml 1,000 ML IV SCH ×2 (07:13→21:07)
[2020-05-05] MEDS: folic acid inj. 2 MG, thiamine inj. 100 MG, MVI, adult No.4 with vit. K 10 ML in dextro... IV SCH ×4 (07:13)
[2020-05-05] MEDS: morphine 4 MG/ML inj SYRINge IV PRN ×2 (07:27→13:50)
[2020-05-05] MEDS ORDERED: multivitamins, therapeutics tablet PO SCH ×2 (08:00)
--- NOTE | 2020-05-05 09:34 | NUR ---
Witnessed seizure lasting 2 mins approximately. Pt never lost BP or respirations. Ativan IV given. Pt now sleeping.
[2020-05-05] MEDS ORDERED: ATOR20TA66 PO (11:03)
[2020-05-05] MEDS ORDERED: POLY1DRO2 OP (11:13)
[2020-05-05] MEDS ORDERED: PEG 400/HYPROMELLOSE/GLYCERIN 15ml bottle EACHEYE PRN (12:35)
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
--- NOTE | 2020-05-05 18:14 | NUR ---
Problems reprioritized. Patient report given, questions answered & plan of care reviewed with NISHI.
--- NOTE | 2020-05-05 18:30 | NUR ---
Patient again very aggressive. Kicking. Attempting to get OOB. Pavel parker called again. Medicated with IV Ativan again. Patient still aggressive after 10min despite ativan. IM Haldol given. 1899. Amena in to visit. Updated on patient's condition. Patient now calm and sedated.
[2020-05-05] MEDS: haloperidol lactate 5mg/ml inj IM PRN (18:36)
[2020-05-05] MEDS ORDERED: LORazepam 2 mg/ml vial IV ONE (18:50)
[2020-05-05] MEDS ORDERED: non-formulary drug (Glucosamine HCl/Chondr Su A Na (Cidaflex Tablet) 1 TAB) PO SCH (20:00)
[2020-05-05] MEDS ORDERED: topiramate 25mg tablet PO SCH (20:00)
[2020-05-05] MEDS: topiramate 100mg tablet PO SCH (20:00)
[2020-05-05] MEDS: doxepin 10mg capsule PO SCH (21:00)
--- NOTE | 2020-05-05 21:00 | NUR ---
Patient remains asleep. Calm. Unable to give po meds at this time.
[2020-05-06] VITALS (24 sets, daily range): BP systolic 116–187; BP diastolic 69–118
[2020-05-06] MEDS: doxepin 10mg capsule PO SCH ×2 (00:39→20:21)
[2020-05-06] MEDS: metoprolol succinate 25mg (24-HOUR) SR. Tablet PO SCH ×3 (00:39→20:21)
[2020-05-06] MEDS: topiramate 100mg tablet PO SCH ×3 (00:39→20:30)
[2020-05-06] MEDS: HYDROcodone/acetaminophen 10/325mg tab PO PRN ×2 (00:40→18:30)
[2020-05-06] MEDS: LORazepam 1 MG tablet PO PRN ×2 (00:40→20:21)
[2020-05-06] MEDS: LORazepam 2 mg/ml vial IV PRN ×3 (04:10→22:26)
[2020-05-06] MEDS ORDERED: LORazepam 2 mg/ml vial IV ONE (04:10)
[2020-05-06] MEDS: haloperidol lactate 5mg/ml inj IM PRN (04:19)
[2020-05-06 05:32] LABS: EOSINOPHILS # (AUTO) 0.2 X10'3 (0-0.9); EOSINOPHILS % (AUTO) 5.4 % (0-6); HEMOGLOBIN 11.3 g/dl (14.0-17.9); LYMPHOCYTES # (AUTO) 1.2 X10'3 (1.1-4.8); LYMPHOCYTES % (AUTO) 27.1 % (21-51); MEAN CORPUSCULAR HEMOGLOBIN 32.4 PG (27.0-31.0); MEAN CORPUSCULAR HGB CONC 33.2 g/dL (33.0-36.5); MEAN CORPUSCULAR VOLUME 97.4 FL (78-98); MEAN PLATELET VOLUME 8.2 FL (7.4-10.4); MONOCYTES # (AUTO) 0.5 X10'3 (0-0.9); MONOCYTES % (AUTO) 11.4 % (2-12); NEUTROPHILS # (AUTO) 2.4 X10'3 (1.8-7.7); NEUTROPHILS % (AUTO) 55.1 % (42-75); PLATELET COUNT 152 X10'3 (140-440); RED BLOOD COUNT 3.49 X10'6 (4.70-6.10); RED CELL DISTRIBUTION WIDTH 13.8 % (11.5-14.5); WHITE BLOOD COUNT 4.4 X10'3 (4.5-11.0)
[2020-05-06 05:48] LABS: ALANINE AMINOTRANSFERASE 28 U/L (12-78); ALBUMIN 3.1 G/DL (3.4-5.0); ALBUMIN/GLOBULIN RATIO 0.9 (1.1-1.5); ALKALINE PHOSPHATASE 90 IU/L (46-116); ANION GAP 10 (8-16); ASPARTATE AMINO TRANSFERASE 27 U/L (10-37); BILIRUBIN,TOTAL 0.4 MG/DL (0.1-1.0); BLOOD UREA NITROGEN 20 MG/DL (7-18); BUN/CREATININE RATIO 11.4 (5.4-32.0); CALCIUM 8.3 MG/DL (8.5-10.1); CHLORIDE 113 MMOL/L (99-107); CREATININE 1.76 MG/DL (0.60-1.10); GLUCOSE 97 MG/DL (70-104); PHOSPHORUS 2.9 MG/DL (2.3-4.5); SODIUM 145 MMOL/L (135-145); TOTAL CARBON DIOXIDE 21.9 MMOL/L (24-32); TOTAL PROTEIN 6.5 G/DL (6.4-8.2); eGFR 39 ML/MIN
[2020-05-06] MEDS: pantoprazole 40mg Tablet.DR PO SCH (07:30)
[2020-05-06] MEDS: vitamin D (cholecalciferol) 1,000 unit tablet PO SCH (08:00)
[2020-05-06] MEDS: duloxetine 30mg CAPSULE.DR PO SCH ×2 (08:00→15:04)
[2020-05-06] MEDS: losartan 50mg tablet PO SCH (08:00)
[2020-05-06] MEDS ORDERED: non-formulary drug (Omeprazole 1 TAB) PO SCH (08:00)
[2020-05-06] MEDS: folic acid inj. 2 MG, thiamine inj. 100 MG, MVI, adult No.4 with vit. K 10 ML in dextro... IV SCH ×4 (08:00)
[2020-05-06] MEDS: amLODIPine 5mg tablet PO SCH ×3 (08:00→15:04)
[2020-05-06] MEDS: tamsulosin 0.4mg capsule PO SCH (08:00)
[2020-05-06] MEDS: docusate sod 100mg capsule PO SCH ×2 (08:00→20:21)
[2020-05-06] MEDS: K, MAG and/or Phos replacement - Verify level? MC SCH (08:00)
[2020-05-06] MEDS: atorvastatin 20mg tablet PO SCH (08:00)
[2020-05-06] MEDS: normal saline 1000ml 1,000 ML IV SCH ×2 (08:52→22:12)
[2020-05-06] MEDS: heparin, porcine 5000 units/ml vial SQ SCH ×2 (11:47→20:21)
--- NOTE | 2020-05-06 18:13 | NUR ---
gave report to david DICKINSON
[2020-05-07] VITALS (14 sets, daily range): BP systolic 130–179; BP diastolic 73–95
[2020-05-07] MEDS: LORazepam 2 mg/ml vial IV PRN ×5 (01:39→13:32)
[2020-05-07] MEDS: morphine 4 MG/ML inj SYRINge IV PRN (01:55)
[2020-05-07 05:34] LABS: BASOPHILS % (AUTO) 0.8 % (0-1); EOSINOPHILS # (AUTO) 0.2 X10'3 (0-0.9); HEMATOCRIT 35.3 % (42.0-52.0); HEMOGLOBIN 11.9 g/dl (14.0-17.9); LYMPHOCYTES % (AUTO) 22.4 % (21-51); MEAN CORPUSCULAR HEMOGLOBIN 32.1 PG (27.0-31.0); MEAN CORPUSCULAR HGB CONC 33.7 g/dL (33.0-36.5); MEAN CORPUSCULAR VOLUME 95.1 FL (78-98); MEAN PLATELET VOLUME 8.7 FL (7.4-10.4); MONOCYTES # (AUTO) 0.5 X10'3 (0-0.9); MONOCYTES % (AUTO) 11.6 % (2-12); NEUTROPHILS # (AUTO) 2.8 X10'3 (1.8-7.7); NEUTROPHILS % (AUTO) 61.2 % (42-75); PLATELET COUNT 151 X10'3 (140-440); RED BLOOD COUNT 3.71 X10'6 (4.70-6.10); RED CELL DISTRIBUTION WIDTH 13.2 % (11.5-14.5); WHITE BLOOD COUNT 4.5 X10'3 (4.5-11.0)
[2020-05-07 05:57] LABS: ALANINE AMINOTRANSFERASE 27 U/L (12-78); ALBUMIN 3.3 G/DL (3.4-5.0); ALBUMIN/GLOBULIN RATIO 0.9 (1.1-1.5); ALKALINE PHOSPHATASE 101 IU/L (46-116); ANION GAP 12 (8-16); ASPARTATE AMINO TRANSFERASE 36 U/L (10-37); BILIRUBIN,TOTAL 0.5 MG/DL (0.1-1.0); BLOOD UREA NITROGEN 13 MG/DL (7-18); BUN/CREATININE RATIO 7.4 (5.4-32.0); CALCIUM 8.7 MG/DL (8.5-10.1); CHLORIDE 112 MMOL/L (99-107); CREATININE 1.75 MG/DL (0.60-1.10); GLUCOSE 86 MG/DL (70-104); MAGNESIUM 1.8 MG/DL (1.5-2.4); PHOSPHORUS 2.6 MG/DL (2.3-4.5); SODIUM 145 MMOL/L (135-145); TOTAL CARBON DIOXIDE 20.8 MMOL/L (24-32); TOTAL PROTEIN 7.1 G/DL (6.4-8.2); eGFR 39 ML/MIN
--- NOTE | 2020-05-07 06:18 | NUR ---
Problems reprioritized. Patient report given, questions answered & plan of care reviewed with Darin DICKINSON.
--- NOTE | 2020-05-07 06:20 | NUR ---
Patient in room ICU 2043. I have received report from Cristal DICKINSON and had the opportunity to ask questions and assume patient care.
[2020-05-07] MEDS: tamsulosin 0.4mg capsule PO SCH (07:26)
[2020-05-07] MEDS: vitamin D (cholecalciferol) 1,000 unit tablet PO SCH (07:28)
[2020-05-07] MEDS: atorvastatin 20mg tablet PO SCH (07:28)
[2020-05-07] MEDS: pantoprazole 40mg Tablet.DR PO SCH (07:28)
[2020-05-07] MEDS: losartan 50mg tablet PO SCH (07:28)
[2020-05-07] MEDS: metoprolol succinate 25mg (24-HOUR) SR. Tablet PO SCH (07:28)
[2020-05-07] MEDS: heparin, porcine 5000 units/ml vial SQ SCH (07:29)
[2020-05-07] MEDS: docusate sod 100mg capsule PO SCH (07:29)
[2020-05-07] MEDS: topiramate 100mg tablet PO SCH (07:30)
[2020-05-07] MEDS: folic acid inj. 2 MG, thiamine inj. 100 MG, MVI, adult No.4 with vit. K 10 ML in dextro... IV SCH ×4 (07:30)
[2020-05-07] MEDS: K, MAG and/or Phos replacement - Verify level? MC SCH (08:00)
[2020-05-07] MEDS: amLODIPine 5mg tablet PO SCH (09:40)
[2020-05-07] MEDS: duloxetine 30mg CAPSULE.DR PO SCH (09:40)
--- NOTE | 2020-05-07 10:15 | NUR ---
called [facility] to get pt's medical record information about seizure. [facility] stated pt was their in 2012 and 2017 and left AMA each time. No workup on seizures was done. Dr. Shannon notified.
--- NOTE | 2020-05-07 10:15 | NUR ---
pt calm in bed with sitter at bedside. removed one of pt's leg immobilizers and soft wrist restraints.
--- NOTE | 2020-05-07 11:45 | NUR ---
Report called to receiving nurse, Susan DICKINSON. Transferred via acce bed with all belongings. Special Issues communicated to receiving nursen about getting pt's seizure workup information from .
--- NOTE | 2020-05-07 13:18 | NUR ---
Patient in room MED 316. I have received report from ALOK Webster and had the opportunity to ask questions and assume patient care.
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
--- NOTE | 2020-05-07 15:49 | NUR ---
pt. left AMA at 1430. pt. was allowed to come upstairs to get him and they were both escorted downstairs by security. pt. understood the AMA paperwork before signing and it was witness by the charge nurse. pt. left with all belongings.
== END 2020-05-07 14:30 | disposition left against medical advice (07) | DRG 101 ==
LOC: ER 11:12 → ED HOLD 16:52 → ICU 2S 17:31 → MED 3N 05-07 12:08
PROVIDERS: ATTEND Internal Medicine Critical Care Medicine
PROC: 4A10X4Z Monitoring of Central Nervous Electrical Activity, External Approach (ICD-10-PCS; principal; 2020-05-06)
DX: G40.901 Epilepsy, unspecified, not intractable, with status epilepticus (principal); N17.9 Acute kidney failure, unspecified; G20 Parkinson's disease; I12.9 Hypertensive chronic kidney disease with stage 1 through stage 4 chronic kidney disease, or unspecified chronic kidney disease; N18.3 Chronic kidney disease, stage 3 (moderate); F17.210 Nicotine dependence, cigarettes, uncomplicated; E78.5 Hyperlipidemia, unspecified; F12.90 Cannabis use, unspecified, uncomplicated; M54.5 Low back pain; Z53.29 Procedure and treatment not carried out because of patient's decision for other reasons; W18.39XA Other fall on same level, initial encounter; Y93.89 Activity, other specified; Y92.098 Other place in other non-institutional residence as the place of occurrence of the external cause; Y99.8 Other external cause status; Z88.8 Allergy status to other drugs, medicaments and biological substances; Z79.899 Other long term (current) drug therapy; Z90.49 Acquired absence of other specified parts of digestive tract; Z98.49 Cataract extraction status, unspecified eye; Z71.6 Tobacco abuse counseling
CPT/HCPCS: 36415; 70450; 71045; 76937; 80053; 80305; 80320; 81001; 82553; 82948; 83605; 83735; 83880; 84100; 84145; 84484; 85025; 85610; 85730; 87081; 93005; 94640; 94760; 95951; 96361; 96365; 96366; 96367; 96368; 96375; 96376; 97110; 97116; 97162; 99291; C9113; G0378; J1630; J1644; J1953; J2060; J2270; J2560; J3411; J3475; J3490; J7030; J7050; J7060

== ENCOUNTER 2021-08-07 21:50 | Inpatient (IN) | payer MEDICARE, MEDICAID ==
[~2021-08-07] VITALS: Ht 180.3 cm; Wt 106.0 kg
[~2021-08-07 21:50] MED LIST changes: +CHOL50004 PO; +DOXE10CA2 PO; -DULO60CA45 PO; +DULO60CA59 PO; -FOLI1TAB16 PO; +GLUC-95 PO; -HYDR-4383 PO; +LOP25T PO; +LOSA50TA64 PO; -MELA3TAB39 PO; -METO-395 PO; -MOME13HF INH; +MULT-1172 PO; -MULT-25 PO; +OMEP20TA5 PO; +POLY1DRO2 OP; -THI100T PO; -folic acid 1mg tablet PO SCH; -folic acid inj. 2 MG, thiamine inj. 100 MG, MVI, adult No.4 with vit. K 10 ML in dextro... IV SCH; -thiamine 100mg tablet PO SCH
[2021-08-07] MEDS ORDERED: iohexol 350MG/ML 100ml bottle IV ONE (22:09)
[2021-08-07 22:27] LABS: MONOCYTES # (AUTO) 0.6 X10'3 (0-0.9)
[2021-08-07 22:29] LABS: BASOPHILS % (AUTO) 0.8 % (0-1); EOSINOPHILS # (AUTO) 0.2 X10'3 (0-0.9); EOSINOPHILS % (AUTO) 2.8 % (0-6); HEMATOCRIT 39.8 % (42.0-52.0); HEMOGLOBIN 13.4 g/dl (14.0-17.9); LYMPHOCYTES # (AUTO) 1.6 X10'3 (1.1-4.8); LYMPHOCYTES % (AUTO) 30.2 % (21-51); MEAN CORPUSCULAR HEMOGLOBIN 33.1 PG (27.0-31.0); MEAN CORPUSCULAR HGB CONC 33.8 g/dL (33.0-36.5); MEAN CORPUSCULAR VOLUME 98.2 FL (78-98); MEAN PLATELET VOLUME 7.6 FL (7.4-10.4); MONOCYTES % (AUTO) 11.5 % (2-12); NEUTROPHILS % (AUTO) 54.7 % (42-75); PLATELET COUNT 217 X10'3 (140-440); RED BLOOD COUNT 4.05 X10'6 (4.70-6.10); RED CELL DISTRIBUTION WIDTH 13.5 % (11.5-14.5); WHITE BLOOD COUNT 5.4 X10'3 (4.5-11.0)
[2021-08-07 22:37] LABS: PARTIAL THROMBOPLASTIN TIME 26 SECONDS (22-32)
[2021-08-07] MEDS ORDERED: iohexol 350 MG/ML 50ML vial IV ONE (22:37)
[2021-08-07 22:38] LABS: ALANINE AMINOTRANSFERASE 62 U/L (12-78); ALBUMIN/GLOBULIN RATIO 0.9 (1.1-1.5); ALKALINE PHOSPHATASE 131 IU/L (46-116); ANION GAP 14 (8-16); ASPARTATE AMINO TRANSFERASE 36 U/L (10-37); BILIRUBIN,TOTAL 0.2 MG/DL (0.1-1.0); BLOOD UREA NITROGEN 34 MG/DL (7-18); BUN/CREATININE RATIO 17.6 (5.4-32.0); CALCIUM 9.6 MG/DL (8.5-10.1); CHLORIDE 110 MMOL/L (99-107); CREATININE 1.93 MG/DL (0.60-1.10); GLUCOSE 128 MG/DL (70-104); POTASSIUM 4.3 MMOL/L (3.5-5.1); SODIUM 147 MMOL/L (135-145); TOTAL CARBON DIOXIDE 23.1 MMOL/L (24-32); TOTAL PROTEIN 8.3 G/DL (6.4-8.2); eGFR 35 ML/MIN
[2021-08-07 22:42] LABS: TROPONIN I < 0.04 NG/ML (0.0-0.05)
[2021-08-07] MEDS: aspirin 325mg tablet PO ONE (23:50)
[2021-08-08] MEDS: aspirin 325mg tablet PO ONE (00:04)
[2021-08-08] MEDS ORDERED: morphine 4 MG/ML inj SYRINge IV ONE (00:05)
[2021-08-08] MEDS ORDERED: morphine 2 MG/ML inj. syringe IV PRN (00:45)
[2021-08-08] MEDS ORDERED: magnesium hydroxide 30ml (MOM) UD suspension PO PRN (00:45)
[2021-08-08] MEDS ORDERED: acetaminophen 325mg tablet PO PRN ×2 (00:45)
[2021-08-08] MEDS ORDERED: HYDROcodone/acetaminophen 5mg/325mg tablet PO PRN (00:45)
[2021-08-08] MEDS ORDERED: mag hydrox/Alum hydrox/simeth 30ml oral suspension PO PRN (00:45)
[2021-08-08] MEDS ORDERED: aspirin 325mg tablet PO ONE (00:55)
[2021-08-08] MEDS ORDERED: TRAZ-251 PO (01:35)
[2021-08-08] MEDS ORDERED: polyvinyl alcohol ophthalmic drops 15ml bottle EACHEYE PRN (05:25)
[2021-08-08 06:20] LABS: HEMOGLOBIN A1C 5.7 % (4.5-6.2)
[2021-08-08 06:28] LABS: CHOL/HDL RATIO 3.8 (0.00-4.99); CHOLESTEROL 188 MG/DL (0-200); HDL CHOLESTEROL 50 MG/DL (35-60); LDL CHOLESTEROL 75 MG/DL (50-100); TRIGLYCERIDES 469 MG/DL (20-135)
[2021-08-08] MEDS ORDERED: pantoprazole 40mg Tablet.DR PO SCH (07:30)
[2021-08-08] MEDS: ondansetron/PF 4mg/2ml inj IV PRN ×2 (07:41→14:02)
[2021-08-08] MEDS: morphine 2 MG/ML inj. syringe IV PRN ×2 (07:42→14:03)
[2021-08-08] MEDS ORDERED: metoprolol tartrate 12.5mg (1/2 tablet) PO SCH (08:00)
[2021-08-08] MEDS ORDERED: duloxetine 30mg CAPSULE.DR PO SCH (08:00)
[2021-08-08] MEDS ORDERED: losartan 50mg tablet PO SCH (08:00)
[2021-08-08] MEDS ORDERED: enoxaparin 40mg/0.4ml syringe SUBCUT SCH (08:00)
[2021-08-08] MEDS ORDERED: aspirin 325mg tablet, delayed-release (Ecotrin) PO SCH (08:00)
[2021-08-08] MEDS ORDERED: docusate sod 100mg capsule PO SCH (08:00)
[2021-08-08] MEDS ORDERED: cholecalciferol (vitamin D3) 1,000 unit (25mcg) tablet PO SCH (08:00)
[2021-08-08] MEDS ORDERED: non-formulary drug (Glucosamine HCl/Chondr Su A Na (Cidaflex Tablet) 1 TAB) PO SCH (08:00)
[2021-08-08] MEDS ORDERED: topiramate 25mg tablet PO SCH (08:00)
[2021-08-08] MEDS ORDERED: topiramate 100mg tablet PO SCH (08:00)
[2021-08-08] MEDS ORDERED: amLODIPine 5mg tablet PO SCH (08:00)
[2021-08-08] MEDS ORDERED: multivitamins, therapeutics tablet PO SCH (08:00)
[2021-08-08] MEDS ORDERED: atorvastatin 20mg tablet PO SCH (08:00)
[2021-08-08] MEDS ORDERED: tamsulosin 0.4mg capsule PO SCH (08:00)
--- NOTE | 2021-08-08 10:30 | NUR ---
PATIENT TO MRI VIA WHEELCHAIR.
[2021-08-08 14:27] VITALS: BP 134/84
[2021-08-08] MEDS ORDERED: PRED10TA23 PO ×2 (15:26→16:10)
[2021-08-08] MEDS ORDERED: ACET-1008 PO (16:20)
== END 2021-08-08 16:37 | disposition home or self-care (01) | DRG 74 ==
LOC: ER 21:52 → UNDOADMIN 08-08 00:43 → ED HOLD 08-08 00:43 → UNDODISIN 08-08 16:37
PROVIDERS: ADMIT Internal Medicine; ATTEND Internal Medicine
PROC: B32T1ZZ Computerized Tomography (CT Scan) of Left Pulmonary Artery using Low Osmolar Contrast (ICD-10-PCS; principal; 2021-08-07)
PROC: B3201ZZ Computerized Tomography (CT Scan) of Thoracic Aorta using Low Osmolar Contrast (ICD-10-PCS; 2021-08-07)
PROC: B32S1ZZ Computerized Tomography (CT Scan) of Right Pulmonary Artery using Low Osmolar Contrast (ICD-10-PCS; 2021-08-07)
PROC: B4201ZZ Computerized Tomography (CT Scan) of Abdominal Aorta using Low Osmolar Contrast (ICD-10-PCS; 2021-08-07)
PROC: B4241ZZ Computerized Tomography (CT Scan) of Superior Mesenteric Artery using Low Osmolar Contrast (ICD-10-PCS; 2021-08-07)
PROC: B4281ZZ Computerized Tomography (CT Scan) of Bilateral Renal Arteries using Low Osmolar Contrast (ICD-10-PCS; 2021-08-07)
PROC: B42C1ZZ Computerized Tomography (CT Scan) of Pelvic Arteries using Low Osmolar Contrast (ICD-10-PCS; 2021-08-07)
PROC: B42H1ZZ Computerized Tomography (CT Scan) of Bilateral Lower Extremity Arteries using Low Osmolar Contrast (ICD-10-PCS; 2021-08-07)
PROC: B4211ZZ Computerized Tomography (CT Scan) of Celiac Artery using Low Osmolar Contrast (ICD-10-PCS; 2021-08-07)
DX: G51.0 Bell's palsy (principal); S22.42XA Multiple fractures of ribs, left side, initial encounter for closed fracture; N17.9 Acute kidney failure, unspecified; G20 Parkinson's disease; R29.703 NIHSS score 3; F12.90 Cannabis use, unspecified, uncomplicated; R47.1 Dysarthria and anarthria; E78.5 Hyperlipidemia, unspecified; N18.9 Chronic kidney disease, unspecified; I12.9 Hypertensive chronic kidney disease with stage 1 through stage 4 chronic kidney disease, or unspecified chronic kidney disease; W18.39XA Other fall on same level, initial encounter; I25.10 Atherosclerotic heart disease of native coronary artery without angina pectoris; K21.9 Gastro-esophageal reflux disease without esophagitis; N40.0 Benign prostatic hyperplasia without lower urinary tract symptoms; G62.9 Polyneuropathy, unspecified; Z88.8 Allergy status to other drugs, medicaments and biological substances; Z56.0 Unemployment, unspecified; Z79.899 Other long term (current) drug therapy; Z90.49 Acquired absence of other specified parts of digestive tract; Z87.891 Personal history of nicotine dependence; Y93.89 Activity, other specified; Y92.89 Other specified places as the place of occurrence of the external cause; Y99.8 Other external cause status
CPT/HCPCS: 36415; 70450; 70544; 70547; 70551; 71045; 71275; 74174; 80053; 80061; 82948; 83036; 83880; 84484; 85025; 85610; 85730; 86885; 86900; 86901; 93005; 93306; 99291; 99292; G0378; J1650; J2270; J2405; Q9967

== ENCOUNTER 2022-02-21 15:11 | Emergency (ER) | payer MEDICARE, MEDICAID ==
[~2022-02-21] VITALS: Ht 177.8 cm; Wt 108.0 kg
[~2022-02-21 15:11] MED LIST changes: -DOXE10CA2 PO; +OMEP20TA43 PO; -OMEP20TA5 PO; +PRED10TA23 PO; +TRAZ-251 PO
[2022-02-21 16:02] LABS: BASOPHILS % (AUTO) 0.4 % (0-1); EOSINOPHILS # (AUTO) 0.1 X10'3 (0-0.9); EOSINOPHILS % (AUTO) 1.4 % (0-6); HEMATOCRIT 38.5 % (42.0-52.0); HEMOGLOBIN 13.3 g/dl (14.0-17.9); LYMPHOCYTES # (AUTO) 1.4 X10'3 (1.1-4.8); LYMPHOCYTES % (AUTO) 18.5 % (21-51); MEAN CORPUSCULAR HEMOGLOBIN 33.7 PG (27.0-31.0); MEAN CORPUSCULAR HGB CONC 34.4 g/dL (33.0-36.5); MEAN CORPUSCULAR VOLUME 97.8 FL (78-98); MEAN PLATELET VOLUME 7.8 FL (7.4-10.4); MONOCYTES # (AUTO) 0.8 X10'3 (0-0.9); MONOCYTES % (AUTO) 11.5 % (2-12); NEUTROPHILS % (AUTO) 68.2 % (42-75); PLATELET COUNT 254 X10'3 (140-440); RED BLOOD COUNT 3.94 X10'6 (4.70-6.10); RED CELL DISTRIBUTION WIDTH 13.9 % (11.5-14.5); WHITE BLOOD COUNT 7.4 X10'3 (4.5-11.0)
[2022-02-21 16:10] LABS: ALANINE AMINOTRANSFERASE 55 U/L (12-78); ALBUMIN 3.8 G/DL (3.4-5.0); ALBUMIN/GLOBULIN RATIO 0.8 (1.1-1.5); ALKALINE PHOSPHATASE 123 IU/L (46-116); ANION GAP 16 (8-16); ASPARTATE AMINO TRANSFERASE 30 U/L (10-37); BILIRUBIN,TOTAL 0.8 MG/DL (0.1-1.0); BLOOD UREA NITROGEN 24 MG/DL (7-18); BUN/CREATININE RATIO 11.6 (5.4-32.0); CALCIUM 9.7 MG/DL (8.5-10.1); CHLORIDE 106 MMOL/L (99-107); CREATININE 2.07 MG/DL (0.60-1.10); GLUCOSE 131 MG/DL (70-104); POTASSIUM 4.1 MMOL/L (3.5-5.1); SODIUM 142 MMOL/L (135-145); TOTAL CARBON DIOXIDE 20.2 MMOL/L (24-32); TOTAL PROTEIN 8.8 G/DL (6.4-8.2); eGFR 32 ML/MIN
[2022-02-21 17:14] VITALS: BP 162/92
[2022-02-21] MEDS ORDERED: HYDROcodone/acetaminophen 10/325mg tab PO ONE (17:25)
[2022-02-21] MEDS ORDERED: HYDR-3972 PO ×3 (17:36→19:52)
== END 2022-02-21 18:37 | disposition home or self-care (01) ==
LOC: ER 15:11
DX: S99.921A Unspecified injury of right foot, initial encounter (principal); I10 Essential (primary) hypertension; F12.10 Cannabis abuse, uncomplicated; Z56.0 Unemployment, unspecified; G20 Parkinson's disease; Z88.8 Allergy status to other drugs, medicaments and biological substances; Z79.899 Other long term (current) drug therapy
CPT/HCPCS: 36415; 73610; 73630; 80053; 83880; 84484; 85025; 93005; 99285

== ENCOUNTER 2022-12-17 13:08 | Emergency (ER) | payer MEDICARE, MEDICAID ==
[~2022-12-17] VITALS: Ht 179.1 cm; Wt 90.9 kg
[~2022-12-17 13:08] MED LIST changes: +HYDR-3972 PO
[2022-12-17 13:45] VITALS: BP 146/95
[2022-12-17] MEDS ORDERED: ondansetron 4mg rapidly disintigrating tab PO ONE (15:00)
[2022-12-17] MEDS ORDERED: HYDROcodone/acetaminophen 5mg/325mg tablet PO ONE (15:00)
[2022-12-17] MEDS ORDERED: IBUP-1984 PO (15:19)
== END 2022-12-17 16:33 | disposition home or self-care (01) ==
LOC: ER 13:09
DX: S63.502A Unspecified sprain of left wrist, initial encounter (principal); I10 Essential (primary) hypertension; F12.90 Cannabis use, unspecified, uncomplicated; Z88.8 Allergy status to other drugs, medicaments and biological substances; Z56.0 Unemployment, unspecified; X58.XXXA Exposure to other specified factors, initial encounter; Y93.89 Activity, other specified; Y92.89 Other specified places as the place of occurrence of the external cause; Y99.8 Other external cause status
CPT/HCPCS: 29260; 73110; 99284; A6449

== ENCOUNTER 2024-01-13 18:57 | Emergency (ER) | payer MEDICARE, MEDICAID ==
[~2024-01-13] VITALS: Ht 180.3 cm; Wt 91.8 kg
[~2024-01-13 18:57] MED LIST changes: +TOPI-95 PO; -TOPI50TA24 PO
[2024-01-13 19:30] VITALS: BP 139/82; PULSE 78; RESP 16; TEMP 98.2; O2SAT 96
[2024-01-13] MEDS ORDERED: AMOX-117 PO (19:58)
[2024-01-13] MEDS ORDERED: HYDR-3965 PO (19:58)
[2024-01-13] MEDS: HYDROcodone/acetaminophen 5mg/325mg tablet PO ONE (20:32)
[2024-01-13] MEDS: TETanus/Pertussis (Acell)/Diphther VAC/PF (Tdap-Adult) 0.5ml syringe IMVAC ONE (20:32)
== END 2024-01-13 20:35 | disposition home or self-care (01) ==
LOC: ER 18:58
DX: S61.250A Open bite of right index finger without damage to nail, initial encounter (principal); Z88.8 Allergy status to other drugs, medicaments and biological substances; Z79.899 Other long term (current) drug therapy; Z79.1 Long term (current) use of non-steroidal anti-inflammatories (NSAID); W55.01XA Bitten by cat, initial encounter; Y93.89 Activity, other specified; Y92.89 Other specified places as the place of occurrence of the external cause; Y99.8 Other external cause status
CPT/HCPCS: 73130; 90715; 99283